=== PATIENT | female | born 1990 ===

== ENCOUNTER → 2019-12-06 | Outpatient (CLI) | payer BC | END | disposition home or self-care (01) | LOC: LAB EV 12:38 → LAB SHORT 12:38 | DX: J06.9 Acute upper respiratory infection, unspecified (principal); Z20.828 Contact with and (suspected) exposure to other viral communicable diseases | CPT/HCPCS: U0003 ==

== ENCOUNTER → 2020-11-25 | Outpatient (CLI) | payer BC | END | disposition home or self-care (01) | LOC: LAB SHORT 13:27 | DX: N39.0 Urinary tract infection, site not specified (principal) | CPT/HCPCS: 87077; 87086; 87186 ==

== ENCOUNTER → 2020-12-20 | Outpatient (CLI) | payer BC | END | disposition home or self-care (01) | LOC: LAB 15:07 → LAB SHORT 15:07 | DX: J02.9 Acute pharyngitis, unspecified (principal) | CPT/HCPCS: 87081; 87147 ==